=== PATIENT | male | born 1995 | race African-American/Black ===

== ENCOUNTER 2023-10-30 16:08 | Emergency (ER) | payer SELFPAY ==
[2023-10-30 16:10] VITALS: BP 157/97; PULSE 107; RESP 14; TEMP 36.6; O2SAT 99; BMI 42.3
--- NOTE | 2023-10-30 16:26 | EX.ED.GENINJ ---
HPI <RACHEL Johns - Last Filed: 10/30/23 17:03> History of Present Illness Chief Complaint: Laceration Narrative Narrative: Patient presenting today due to a laceration to his left index finger. Patient refuses to tell me how he got the laceration. He reports,, they did not tell you? When I tell him that I would like to hear the story from him he reports, if I knew, I would tell you. He does report that it happened today but that is all the information he is providing. He is unsure when his last tetanus was updated. He denies any other injury. PFSH <RACHEL Johns - Last Filed: 10/30/23 17:03> [facility] Medical History no medical history Allergy/AdvReac Type Severity Reaction Status Date / Time No Known Allergies Allergy Verified 10/30/23 16:10 Family History no significant family his Surgical History no surgical history Social History Smoking Status: Never smoker ROS <RACHEL Johns - Last Filed: 10/30/23 17:03> ROS ED Constitutional Constitutional ED: Denies chills or fever(s) Cardiovascular Cardiovascular: Denies chest pain Respiratory/Chest Respiratory/Chest: Denies cough or dyspnea Gastrointestinal Gastrointestinal: Denies abdominal pain, nausea or vomiting Musculoskeletal Musculoskeletal: Denies arthralgias, back pain, myalgias or neck pain Integumentary Reports laceration EXAM <RACHEL Johns - Last Filed: 10/30/23 17:03> Physical Exam Const Vital Signs: 10/30/23 16:10 Temperature 97.9 F Temperature Source Temporal Pulse Rate 107 H Respiratory Rate 14 Blood Pressure 157/97 H Blood Pressure Mean 117 Pulse Ox 99 Oxygen Delivery Method Room Air Positive well nourished, well developed and no apparent distress General Appearance ED: well developed HEENT Reports normocephalic and head/scalp atraumatic Mouth ED: Yes moist mucous membranes normal Eyes PERRL and EOMs intact bilaterally Neck full ROM and supple Chest Wall inspection of chest normal Resp normal respiratory effort and clear to auscultation bilaterally Cardio regular rate and regular rhythm GI soft to palpation, non-tender, non-distended and no masses Back/Spine normal ROM and normal to inspection Extremity full ROM Extremity Narrative: Less than 1 cm skin avulsion to the palmar aspect of the distal left index finger. Full flexion and extension at the MCP, PIP, DIP joints of the left hand. Neuro oriented x3, CN's II-XII intact bilaterally, moves all extremities, no focal motor deficits and no sensory deficits noted Sensorium / Orientation: awake and alert Psych Attitude: withdrawn, bizarre and uncooperative <Dr. Stefan Whitmore MD - Last Filed: 10/30/23 16:50> Physical Exam Const Vital Signs: 10/30/23 16:10 Temperature 97.9 F Temperature Source Temporal Pulse Rate 107 H Respiratory Rate 14 Blood Pressure 157/97 H Blood Pressure Mean 117 Pulse Ox 99 Oxygen Delivery Method Room Air MDM <RACHEL Johns - Last Filed: 10/30/23 17:03> [facility] Narrative Medical decision making narrative: Patient presenting due to a laceration to his left index finger. Patient is sitting on the examination bed looking at his phone, he refuses to speak to me when I enter the room. I introduced myself and asked him what brought him in today but he refused to speak. Finally, I started prompting him asking what happened to his finger and he for several minutes again refused to talk to me or tell me what happened to his finger. Eventually, I did get him to show me the finger which has a avulsion to the distal aspect of the left index finger. When I asked how he got that, he refused to tell me. The only information I could get from him was that this happened today. He reported, if I knew, I would tell you. He is unsure when his last tetanus was updated. Wound was managed by the attending and bandaged. Patient discharged home in stable condition and is comfortable with plan. <Dr. Stefan Whitmore MD - Last Filed: 10/30/23 16:50> [facility] Treatment and Re-Evaluation Narrative: I have personally performed a face to face assessment of the patient and have reviewed the [place] Note. I performed a substantive portion of the visit including all aspects of the following. My moreno findings include: History is after much coaxing to get the patient to tell us what happened, he eventually states that he was walking by a wall outside that he thinks was brisk, dragged his finger near it and thinks it must of caught on something, causing an injury to his left index finger pad. Unknown last tetanus he thinks probably more than 10 years ago. Left hand dominant. No other injuries. Does not take daily aspirin or any blood thinning medications. Exam is epidermal skin tear that is into but not through the dermis of the pad of the left index finger. There is minor venous/capillary oozing. The exposed area is tender. Total of estimated 0.75 cm?. Medical Decison Making does not appear to require suturing. Patient is amenable to excisional debridement which was performed, the area will be cleansed, piece of Surg[place] placed to help with the bleeding, and dressed with a bandage given appropriate outpatient wound care instructions. Other additions or changes: [None] Discharge Plan Triage Chief Complaint: Laceration ED Midlevel Provider: Gema Tamayo ED Provider: Stefan Whitmore Dx/Rx/DC Orders Clinical Impression: Avulsion of skin of index finger, Immunization, tetanus-diphtheria Instructions: Tdap Vaccine, ED Skin Tear (Skin Avulsion) Primary Care Provider: Care Physician,No Primary Referrals: Akiko Pearl [Non-Staff] - As Needed Disposition Disposition: Home, Self Care
[2023-10-30] MEDS: Diphth,Pertuss(Acell),Tet Vac 0.5 ML Vial IM (17:00)
== END 2023-10-30 17:14 | disposition home or self-care (01) ==
PROVIDERS: Emergency Provider Emergency Medicine; Visit Provider Emergency Medicine
DX: S61.211A Laceration without foreign body of left index finger without damage to nail, initial encounter (principal); Z23 Encounter for immunization; X58.XXXA Exposure to other specified factors, initial encounter
CPT/HCPCS: 90715; 99282

== ENCOUNTER 2024-03-11 23:38 | Emergency (ER) | payer OTHER, SELFPAY ==
[2024-03-11 23:43] VITALS: BP 148/101; PULSE 108; RESP 16; TEMP 36.8; O2SAT 93; BMI 54.3
--- NOTE | 2024-03-11 23:46 | W.PC.EDHO ---
Patient calling street supervisor to determine if testing is needed.
--- NOTE | 2024-03-11 23:58 | CT_ITS ---
INDICATION: head injury headache EXAMINATION: CT BRAIN - CT Head or Brain W/O Contrast Injection TECHNIQUE: Serial CT axial images were obtained of the head without intravenous contrast. A radiation dose optimization technique was used for this scan. COMPARISON: None. Findings: Serial CT axial images of the head without contrast. BRAIN PARENCHYMA: Normal carter-white matter differentiation. No evidence of intraparenchymal hemorrhage or hyperattenuating extra-axial fluid collection. BONES: Left maxillary sinus and ethmoid sinus mucosal thickening. SCALP/REMAINING SOFT TISSUES: Unremarkable. ASPECTS Score for Acute Strokes, if applicable: 10 CT/Brain/Head without Contrast IMPRESSION: No acute intracranial hemorrhage in this noncontrast head CT. Sinus disease. Electronically Signed: Jay Gaston MD at 0:34 EDT ,
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
--- NOTE | 2024-03-12 00:04 | ED.RN ---
Per disability specialist Osbaldo Winkler he requests drug screen. Phone number [phone]
== END 2024-03-12 01:04 | disposition home or self-care (01) ==
PROVIDERS: Emergency Provider Emergency Medicine; Visit Provider Emergency Medicine
DX: S06.0X0A Concussion without loss of consciousness, initial encounter (principal); T22.012A Burn of unspecified degree of left forearm, initial encounter; V47.5XXA Car driver injured in collision with fixed or stationary object in traffic accident, initial encounter; W22.11XA Striking against or struck by driver side automobile airbag, initial encounter
CPT/HCPCS: 70450; 99282